=== PATIENT | female | born 1990 | race Caucasian/White ===

== ENCOUNTER 2021-05-11 10:15 | Inpatient (IN) | payer OTHER ==
[~2021-05-11 10:15] MED LIST: CITRIC ACID/SODIUM CITRATE 30 ML UNIT-DOSE CUP PO ONE; ELECTROLYTE-148 SOLN 1,000 ML IV SCH
[2021-05-11] MEDS: ELECTROLYTE-148 SOLN 1,000 ML IV SCH (11:00)
[2021-05-11 12:19] VITALS: BMI 26.7
[2021-05-11] MEDS ORDERED: ACETAMINOPHEN 325 MG TABLET (FP) PO PRN (13:13)
[2021-05-11] MEDS ORDERED: ONDANSETRON 4 MG/2 ML VIAL IVPUSH PRN (13:13)
[2021-05-11] MEDS ORDERED: morphine SULFATE/PF 1 MG/2 ML (2cc Syringe - QUVA) ONE (13:18)
[2021-05-11] MEDS ORDERED: PHENYLEPHRINE HCL 10 MG/1 ML SINGLE DOSE VIAL ONE (13:18)
[2021-05-11] MEDS: OXYTOCIN 20 UNITS in 0.9% NS 20 UNIT/1,000 ML INFUS.BAG IV SCH (14:00)
[2021-05-11] MEDS ORDERED: ceFAZolin SODIUM 1 GM VIAL ONE ×2 (14:24)
[2021-05-11] MEDS ORDERED: OXYTOCIN 10 UNITS/ML VIAL ONE ×4 (14:24)
[2021-05-11] MEDS ORDERED: METHYLERGONOVINE MALEATE 0.2 MG/1 ML AMP IM PRN (14:37)
[2021-05-11] MEDS ORDERED: OXYTOCIN 20 UNITS in 0.9% NS 20 UNIT/1,000 ML INFUS.BAG IV SCH (15:00)
[2021-05-11 15:09] LABS: CORD BASE EXCESS -2.3 mmol/L (0-2); CORD HCO3 25.8 mmHg (20-29); CORD pH 7.266 (7.14-7.44)
[2021-05-11 15:12] LABS: CORD BASE EXCESS -2.1 mmol/L (0-2); CORD HCO3 23.7 mmHg (20-29); CORD PCO2 44.1 mmHg (30-78); CORD pH 7.348 (7.14-7.44)
[2021-05-11] MEDS ORDERED: OXYTOCIN 20 UNITS in 0.9% NS 20 UNIT/1,000 ML INFUS.BAG IV ONE ×2 (15:25→17:39)
[2021-05-11] MEDS ORDERED: IBUPROFEN 800 MG/8 ML IJ IVPB SCH (17:15)
[2021-05-11] MEDS ORDERED: IBUPROFEN 800 MG/8 ML IJ IVPB ONE (17:16)
[2021-05-11] MEDS ORDERED: IBUPROFEN 800 MG/8 ML IJ IVPB PRN (18:32)
[2021-05-11] MEDS: IBUPROFEN 600 MG TABLET (FP) PO PRN (22:39)
[2021-05-11] MEDS: SIMETHICONE 80 MG TAB.CHEW (FP) PO PRN (22:39)
[2021-05-12] MEDS: OXYTOCIN 20 UNITS in 0.9% NS 20 UNIT/1,000 ML INFUS.BAG IV SCH ×2 (02:00→22:53)
[2021-05-12] MEDS ORDERED: oxyCODONE HCL 5 MG TABLET PO PRN ×2 (02:40)
[2021-05-12] MEDS: ACETAMINOPHEN 325 MG TABLET (FP) PO PRN ×2 (06:22→21:52)
[2021-05-12] MEDS: SIMETHICONE 80 MG TAB.CHEW (FP) PO PRN ×4 (06:22→21:52)
[2021-05-12 08:30] LABS: BASO % 0.4 % (0-2.0); EOS % 0.2 % (0-4.5); HEMATOCRIT 28.6 % (32.4-45.2); HEMOGLOBIN 9.9 GM/dL (10.7-15.3); LYMPH % 14.3 % (8-40); MCH 31.3 pg (25.7-33.7); MCHC 34.5 g/dl (32.0-36.0); MEAN CELL VOLUME 90.7 fl (80-96); MEAN PLT VOLUME 8.6 fl (7.5-11.1); MONO % 5.7 % (3.8-10.2); NEUT % 79.4 % (42.8-82.8); PLATELET COUNT 152 10^3/uL (134-434); RBC 3.16 M/mm3 (3.60-5.2); RDW 12.9 % (11.6-15.6); WHITE BLOOD COUNT 9.9 K/mm3 (4.0-10.0)
[2021-05-12] MEDS ORDERED: DIPHTH,PERTUSS(ACELL),TET 0.5 ML DISP.SYRIN IM ONE (10:00)
[2021-05-12] MEDS: IBUPROFEN 600 MG TABLET (FP) PO PRN ×2 (12:19→17:21)
[2021-05-12] MEDS ORDERED: BISACODYL 10 MG SUPP.RECT RC PRN (14:40)
[2021-05-12] MEDS: ELECTROLYTE-148 SOLN 1,000 ML IV SCH (22:54)
[2021-05-13] MEDS: SIMETHICONE 80 MG TAB.CHEW (FP) PO PRN ×3 (05:42→18:09)
[2021-05-13] MEDS: IBUPROFEN 600 MG TABLET (FP) PO PRN ×4 (05:42→23:36)
[2021-05-14 08:05] LABS: BASO % 0.3 % (0-2.0); EOS % 0.9 % (0-4.5); HEMATOCRIT 25.8 % (32.4-45.2); LYMPH % 21.7 % (8-40); MCH 31.6 pg (25.7-33.7); MCHC 34.8 g/dl (32.0-36.0); MEAN CELL VOLUME 90.9 fl (80-96); MONO % 5.2 % (3.8-10.2); NEUT % 71.9 % (42.8-82.8); PLATELET COUNT 181 10^3/uL (134-434); RBC 2.84 M/mm3 (3.60-5.2); RDW 13.1 % (11.6-15.6); WHITE BLOOD COUNT 8.2 K/mm3 (4.0-10.0)
[2021-05-14 09:44] VITALS: BP 102/66; PULSE 100; TEMP 98.1
== END 2021-05-14 13:10 | disposition home or self-care (01) | DRG 540 ==
LOC: JLDR 10:15 → J3W 20:00
PROVIDERS: ADMIT Internal Medicine; ATTEND Internal Medicine
PROC: 10D00Z1 Extraction of Products of Conception, Low, Open Approach (ICD-10-PCS; principal; 2021-05-11)
DX: O34.211 Maternal care for low transverse scar from previous cesarean delivery (principal); O36.5930 Maternal care for other known or suspected poor fetal growth, third trimester, not applicable or unspecified; Z3A.39 39 weeks gestation of pregnancy; Z37.0 Single live birth
CPT/HCPCS: 36415; 36600; 80048; 82803; 85025; 85610; 85730; 86780; 86850; 86900; 86901; 88307-TC; C9803; U0003; U0005